=== PATIENT | female | born 1935 | race Caucasian/White ===

== ENCOUNTER 2023-08-18 09:21 | Emergency (ER) | payer MEDICARE, BC ==
[2023-08-18] MEDS: Sodium Chloride 0.9% 1,000 ML IV SCH (10:25)
[2023-08-18] MEDS: Ondansetron 4 MG/2 ML SDV IVPUSH ONE (10:26)
[2023-08-18] MEDS: Morphine 2 MG/ML SYRINGE IVPUSH ONE (10:30)
[2023-08-18] MEDS: Sodium Chloride 0.9% 10 ML Syringe FLUSH PRN (10:33)
[2023-08-18 11:14] LABS: BASOPHILS PERCENT AUTO 0.2 % (0.0-1.0); EOSINOPHILS PERCENT AUTO 0.4 % (0.0-6.0); HEMATOCRIT 40.8 % (37.0-47.0); HEMOGLOBIN 13.6 gm/dl (12.0-16.0); IMMATURE GRAN ABSOLUTE AUTO 0.14 K/mm3 (0.00-0.05); IMMATURE GRAN PERCENT AUTO 1.6 % (0.0-0.4); LYMPHOCYTES ABSOLUTE AUTO 0.8 K/mm3 (1.0-4.8); MEAN CORPUSCULAR HEMOGLOBIN 28.2 pg (28.0-32.0); MEAN CORPUSCULAR HGB CONC 33.3 g/dl (32.0-36.0); MEAN CORPUSCULAR VOLUME 84.5 fl (83.0-99.0); MEAN PLATELET VOLUME 11.3 fl (9.4-12.3); MONOCYTES ABSOLUTE AUTO 2.2 K/mm3 (0.0-0.8); MONOCYTES PERCENT AUTO 24.8 % (0.0-8.0); NEUTROPHILS ABSOLUTE AUTO 5.7 K/mm3 (1.8-7.7); PLATELET COUNT,PLT 93 K/mm3 (150-400); RED BLOOD CELL COUNT 4.83 M/mm3 (4.10-5.30); WHITE BLOOD CELL COUNT,WBC 8.98 K/mm3 (3.9-11.3)
[2023-08-18 11:31] LABS: INR 1.02; PROTHROMBIN TIME 10.9 SECONDS (9.7-12.0)
[2023-08-18 11:35] LABS: A/G RATIO 1.3 (1-2); ALBUMIN 4.2 g/dl (3.4-5.0); ANION GAP 19.6 (5-15); BILIRUBIN TOTAL 0.8 mg/dL (0.2-1.0); BUN/CREATININE RATIO 15.7 (14-18); CALCIUM 9.5 mg/dL (8.5-10.1); CREATININE 1.4 mg/dL (0.55-1.02); EST CRCL DRUG DOSING (CG) 22.81 mL/min; POTASSIUM,K 4.6 mEq/L (3.5-5.1); PROTEIN TOTAL,TP 7.4 g/dl (6.4-8.2)
[2023-08-18 11:45] LABS: SLIDE REVIEW ABNORMAL SMEAR
[2023-08-18] MEDS: Morphine 4 MG/ML Syringe IVPUSH ONE (12:39)
== END 2023-08-18 12:45 ==
LOC: JD.ED 09:21
DX: S72.002A Fracture of unspecified part of neck of left femur, initial encounter for closed fracture (principal); Z91.018 Allergy to other foods; W01.0XXA Fall on same level from slipping, tripping and stumbling without subsequent striking against object, initial encounter
CPT/HCPCS: 36415; 73502; 80053; 85025; 85610; 96374; 96375; 96376; 99285; J2270; J2405; J3490; J7030